=== PATIENT | female | born 1970 | race Caucasian/White ===

== ENCOUNTER 2019-04-26 09:08 | Emergency (ER) | payer BC, OTHER ==
[~2019-04-26] VITALS: Ht 152.4 cm; Wt 70.3 kg
[2019-04-26 09:12] VITALS: BP 108/87
--- NOTE | 2019-04-26 09:21 | NUR ---
PT AMBULATED TO ER BED 9
--- NOTE | 2019-04-26 09:30 | NUR ---
DR. MALDONADO BEDSIDE EVALUATING PT
[2019-04-26] MEDS ORDERED: methylPREDNISolone SS 125 MG/2 ML VIAL IM ONE (09:35)
[2019-04-26] MEDS ORDERED: FAMOTIDINE 20 MG TAB PO ONE (09:35)
[2019-04-26] MEDS ORDERED: diphenhydrAMINE 50 MG/ML VIAL IM ONE (09:35)
[2019-04-26 10:01] VITALS: BP 110/70
--- NOTE | 2019-04-26 10:01 | NUR ---
Patient discharged with v/s stable. Written and verbal after care instructions given and explained. Patient alert, oriented and verbalized understanding of instructions. Ambulatory with steady gait. All questions addressed prior to discharge. ID band removed. Patient advised to follow up with PMD. Rx of Benadryl and Prednisone given. Patient educated on indication of medication including possible reaction and side effects. Opportunity to ask questions provided and answered.
== END 2019-04-26 10:01 | disposition home or self-care (01) ==
LOC: MED 09:08
DX: L25.9 Unspecified contact dermatitis, unspecified cause (principal); R10.9 Unspecified abdominal pain; R11.2 Nausea with vomiting, unspecified; K21.9 Gastro-esophageal reflux disease without esophagitis
CPT/HCPCS: 81002; 81025; 96372; 99283; J1200; J2930

== ENCOUNTER 2021-04-01 09:45 | Emergency (ER) | payer OTHER ==
[~2021-04-01] VITALS: Ht 152.4 cm; Wt 71.0 kg
[2021-04-01 09:57] VITALS: BP 130/76
--- NOTE | 2021-04-01 11:20 | NUR ---
DR. REZA WITH PT IN A FOR FURTHER EVALUATION.
[2021-04-01] MEDS ORDERED: predniSONE 20 MG TAB PO ONE (11:25)
[2021-04-01 11:45] LABS: BASOPHILS # (AUTO) 0.1 K/uL (0.00-0.22); EOSINOPHILS # (AUTO) 0.1 K/uL (0-0.4); EOSINOPHILS % (AUTO) 0.9 % (0.0-4.0); HEMATOCRIT 39.8 % (36-48); HEMOGLOBIN 13.2 g/dL (12.0-16.0); LYMPHOCYTES # (AUTO) 1.9 K/uL (2.5-16.5); LYMPHOCYTES % (AUTO) 29.2 % (20.5-51.1); MEAN CORPUSCULAR HEMOGLOBIN 28 pg (27-31); MEAN CORPUSCULAR HGB CONC 33 g/dL (33-37); MONOCYTES # (AUTO) 0.5 K/uL (0.8-1.0); MONOCYTES % (AUTO) 7.3 % (1.7-9.3); NEUTROPHILS % (AUTO) 61.6 % (42.2-75.2); PLATELET COUNT (AUTO) 281 K/uL (140-450); RED BLOOD CELL COUNT(AUTO) 4.74 MIL/uL (4.20-5.40); RED CELL DISTRIBUTION WIDTH 16.3 % (11.6-13.7); WHITE BLOOD COUNT (AUTO) 6.4 K/uL (4.8-10.8)
[2021-04-01 11:50] LABS: ANION GAP 10.6 (8-16); CARBON DIOXIDE 29.9 mmol/L (21-32); CREATININE 0.7 mg/dL (0.6-1.3); POTASSIUM 3.5 mmol/L (3.5-5.1)
[2021-04-01] MEDS ORDERED: predniSONE 20 MG TAB ONE (12:51)
[2021-04-01] MEDS ORDERED: PRED20TA5 PO (13:28)
--- NOTE | 2021-04-01 13:37 | NUR ---
Patient discharged with v/s stable. Written and verbal after care instructions given and explained. Patient alert, oriented and verbalized understanding of instructions. Ambulatory with steady gait. All questions addressed prior to discharge. ID band removed. Patient advised to follow up with PMD. Rx of DELTASONE given. Patient educated on indication of medication including possible reaction and side effects. Opportunity to ask questions provided and answered.
[2021-04-01 13:38] VITALS: BP 130/76
== END 2021-04-01 13:37 | disposition home or self-care (01) ==
LOC: MED 09:45
DX: L30.9 Dermatitis, unspecified (principal); R07.9 Chest pain, unspecified; K21.9 Gastro-esophageal reflux disease without esophagitis; Z79.899 Other long term (current) drug therapy
CPT/HCPCS: 36415; 71045; 80048; 84484; 85025; 93005; 99285; J7512